=== PATIENT | male | born 1945 | race Caucasian/White ===

== ENCOUNTER 2018-07-07 07:41 | Day surgery (SDC) | payer OTHER ==
[~2018-07-07 07:41] MED LIST: ACETAMINOPHEN 325 MG TAB PO; CYCLOPENTOLATE 2% OPHTH SOLN 2ML BTL OS; PHENYLEPHRINE HCL 10 % OPHTH. SOL 5ML OS; PROPARACAINE 0.5% OPHTH SOL 15ML OS
[2018-07-07] MEDS: OFLOXACIN 0.3 % (OCUFLOX) OPTH SOL 5ML OS (08:06)
[2018-07-07] MEDS: PHENYLEPHRINE 2.5% OPHTH SOL 2ML OS (08:06)
[2018-07-07] MEDS: TROPICAMIDE 1% OPHTH SOLN 2ML OS (08:07)
[2018-07-07] MEDS: LIDOCAINE 3.5 % 1ML OPHTH TOPICAL GEL OU (08:07)
[2018-07-07] MEDS ORDERED: fentaNYL 100 MCG/2 ML INJECTION (J3010) As Ordered (08:53)
[2018-07-07] MEDS ORDERED: MIDAZOLAM INJ 2 MG/2 ML VIAL (J2250) As Ordered (08:53)
[2018-07-07] MEDS ORDERED: PROPARACAINE 0.5% OPHTH SOL 15ML As Ordered (09:20)
[2018-07-07] MEDS: BALANCED SALT IRRIGATION SOL 500ML GLASS BOTTLE (FOR OR EYE COMPOUND) As Ordered (09:26)
[2018-07-07] MEDS: POVIDONE-IODINE 5% OPHTH PREP SOL 30ML As Ordered (09:27)
[2018-07-07] MEDS: LIDOCAINE 1% SDV 5 ML VIAL As Ordered (09:27)
[2018-07-07] MEDS: ACETYLCHOLINE OPHTH SOLN 1% 2ML (MIOCHOL-E) As Ordered (09:27)
[2018-07-07] MEDS: CEFUROXIME 1MG/0.1ML INTRACAMERAL INJ As Ordered (09:27)
[2018-07-07] MEDS: HEALON DUET (HEALON 10MG/ML 0.55ML & HEALON ENDOCOAT 30MG/ML 0.85ML) As Ordered (09:27)
[2018-07-07] MEDS: AcetaZOLAMIDE 500 MG ER CAP PO (09:50)
[2018-07-07] MEDS ORDERED: AcetaZOLAMIDE 500 MG ER CAP As Ordered (09:52)
[2018-07-07] MEDS ORDERED: KETOROLAC 0.5% OPHTH SOLN OS (10:00)
[2018-07-07] MEDS ORDERED: TRIMETHOBENZAMIDE 300 MG CAP PO (10:00)
== END 2018-07-07 10:06 | disposition home or self-care (01) ==
LOC: M SDC 07:41
DX: H25.12 Age-related nuclear cataract, left eye (principal); I10 Essential (primary) hypertension; E78.5 Hyperlipidemia, unspecified; Z79.899 Other long term (current) drug therapy; F17.220 Nicotine dependence, chewing tobacco, uncomplicated
CPT/HCPCS: 66984